=== PATIENT | male | born 1960 ===

== ENCOUNTER → 2017-12-15 | Outpatient (CLI) | payer BC ==
[~2017-12-15] MED LIST: AMLO10 PO; FLAX PO; HYDCHL12.5 PO; LISI20 PO; Multiple Vitam1 EAC1 PO; OCUVITE EYE +1 EACH PO; SOMA350 MG PO; VITAMIN D5000 UNIT PO
== END | disposition home or self-care (01) ==
LOC: PLD 10:56 → LAB SHORT 10:56
DX: D22.62 Melanocytic nevi of left upper limb, including shoulder (principal)
CPT/HCPCS: 88305

== ENCOUNTER 2020-08-09 11:12 | Day surgery (SDC) | payer BC ==
[~2020-08-09] VITALS: Ht 185.4 cm; Wt 85.0 kg
[~2020-08-09 11:12] MED LIST changes: +CALCIUM-MAGNES1 EAC9 PO; +CENTRUM SILVER1 EAC2 PO; +CYCL10; +DIPH50 PO; +ELET40TA; +MELATONIN1010 PO; +Norco 5-325 Ta1 EACH PO; +VITAMIN D325 MC3 PO; +ZESTRIL40 M1 PO; +[UNRECOGNIZED DRUG - OTHER] PO
== END 2020-08-09 13:32 | disposition home or self-care (01) ==
LOC: ORSCSDS 11:12
PROVIDERS: Internal Medicine Gastroenterology
PROC: 0DJD8ZZ Inspection of Lower Intestinal Tract, Via Natural or Artificial Opening Endoscopic (ICD-10-PCS; principal; 2020-08-09 12:30)
DX: Z12.11 Encounter for screening for malignant neoplasm of colon (principal); K57.30 Diverticulosis of large intestine without perforation or abscess without bleeding; K64.8 Other hemorrhoids; Z86.010 Personal history of colon polyps; E78.5 Hyperlipidemia, unspecified; I10 Essential (primary) hypertension; K21.9 Gastro-esophageal reflux disease without esophagitis; Z79.899 Other long term (current) drug therapy
CPT/HCPCS: J2704; J7120